=== PATIENT | female | born 1965 | race Caucasian/White ===

== ENCOUNTER → 2019-04-10 | Outpatient (CLI) | payer OTHER ==
--- NOTE | 2019-04-10 09:31 | PCVCIMAG ---
APPROVED REPORT Study performed: 04/10/2019 08:22:02 EXAM: Comprehensive 2D, Doppler, and color-flow Echocardiogram Patient Location: Echo lab Status: routine BSA: 2.03 HR: 67 bpmBP: 144/90 mmHg Rhythm: NSR Other Information Study Quality: Adequate Indications Palpitations Syncope 2D Dimensions IVSd: 10.60 (7-11mm) LVDd: 55.42 mm PWd: 9.22 (7-11mm) LVDs: 40.65 (25-40mm) Left Atrium: 41.62 (27-40mm) Aortic Root: 29.90 mm LV Single Plane 4CH: 55.77 % LV Single Plane 2CH: 66.27 % Biplane EF: 61.3 % Volumes Left Atrial Volume (Systole) Single Plane 4CH: 52.19 mLSingle Plane 2CH: 54.53 mL LA ESV Index: 27.00 mL/m2 Aortic Valve AoV Peak Galindo.: 1.49 m/s AO Peak Gr.: 8.84 mmHgLVOT Max P.22 mmHg LVOT Max V: 0.90 m/s Mitral Valve E/A Ratio: 1.2 MV Decel. Time: 216.80 ms MV E Max Galindo.: 0.59 m/s MV A Galindo.: 0.49 m/s IVRT: 103.81 ms Pulmonary Valve PV Peak Galindo.: 1.06 m/sPV Peak Gr.: 4.47 mmHg Pulmonary Vein P Vein S: 0.27 m/sP Vein A: 0.31 m/s P Vein D: 0.31 m/sP Vein A Dur.: 121.1 msec P Vein S/D Ratio: 0.87 Tricuspid Valve TR Peak Galindo.: 2.76 m/s TR Peak Gr.: 30.43 mmHg Left Ventricle The left ventricle is normal size. There is normal LV segmental wall motion. There is normal left ventricular wall thickness. Left ventricular systolic function is normal. The left ventricular ejection fraction is within the normal range. LVEF is 60%. Grade I - abnormal relaxation pattern. Right Ventricle The right ventricle is normal size. The right ventricular systolic function is normal. Atria The left atrium size is normal. The right atrium size is normal. Aortic Valve The aortic valve is normal in structure. No aortic regurgitation is present. There is no aortic valvular stenosis. Mitral Valve The mitral valve is normal in structure. Mild mitral regurgitation. No evidence of mitral valve stenosis. Tricuspid Valve The tricuspid valve is normal in structure. Mild tricuspid regurgitation with PAP of 37 mmHg. Pulmonic Valve The pulmonary valve is normal in structure. There is no pulmonic valvular regurgitation. Great Vessels The aortic root is normal in size. IVC is normal in size and collapses >50% with inspiration. Pericardium There is no pericardial effusion. There is no pleural effusion. <Conclusion> The left ventricle is normal size. There is normal left ventricular wall thickness. Left ventricular systolic function is normal. Grade I - abnormal relaxation pattern. The right ventricle is normal size. The left atrium size is normal. The aortic valve is normal in structure. Mild mitral regurgitation. Mild tricuspid regurgitation with PAP of 37 mmHg.
== END ==
LOC: PCVCIMAG 08:21
PROVIDERS: ATTEND Internal Medicine Cardiovascular Disease
DX: I08.1 Rheumatic disorders of both mitral and tricuspid valves (principal); G25.81 Restless legs syndrome; Z88.2 Allergy status to sulfonamides; Z88.6 Allergy status to analgesic agent
CPT/HCPCS: 93306